=== PATIENT | male | born 1960 | race American Indian/Alaskan Native ===

== ENCOUNTER 2017-04-10 09:55 | Emergency (ER) | payer OTHER ==
[2017-04-10 09:55] VITALS: BMI 28.5
[2017-04-10 10:00] VITALS: RESP 18
--- NOTE | 2017-04-10 10:17 | ED PDOC ---
Arrival/HPI - General Chief Complaint: Back Pain Time Seen by Provider: 04/10/17 09:59 Historian: Patient - History of Present Illness Narrative History of Present Illness (Text): 04/10/17 10:12 This 56 yo male who denies pmh, presents to this ED c/o left lower back pain that radiates to his left buttock x 1 day. Patient states while getting off his truck, he landed wrong on the ground causing back pain. Patient denies sob , cp, abdominal pain, fever, urinary symptoms, GI/ incontinence, saddle anesthesias, urinary retention, dizziness, testicular pain, groin pain, hematuria, dysuria, skin rash, or abnormal gait. Time/Duration: Other (1 day) Quality: Aching Context: Home Past Medical History - Provider Review Nursing Documentation Reviewed: Yes - Psychiatric Hx Substance Use: No - Anesthesia Hx Anesthesia: No Family/Social History - Physician Review Nursing Documentation Reviewed: Yes Family/Social History: Other (noncontributory) Smoking Status: Never Smoked Hx Alcohol Use: Yes Hx Substance Use: No Allergies/Home Meds Allergies/Adverse Reactions: Allergies No Known Allergies Allergy (Verified 04/10/17 10:00) Review of Systems - Review of Systems Constitutional: Normal. absent: Fatigue, Weight Change, Fevers, Night Sweats Eyes: Normal ENT: Normal Respiratory: Normal. absent: SOB, Cough Cardiovascular: Normal. absent: Chest Pain, Palpitations Gastrointestinal: Normal. absent: Abdominal Pain, Nausea, Vomiting Genitourinary Male: Normal. absent: Dysuria, Frequency, Hematuria Musculoskeletal: Back Pain Skin: Normal. absent: Rash Neurological: Normal Endocrine: Normal Hemo/Lymphatic: Normal Psychiatric: Normal Physical Exam Vital Signs Temp Pulse Resp BP Pulse Ox 04/10/17 09:56 97.9 F 91 H 18 141/82 97 Temperature: Afebrile Blood Pressure: Normal Pulse: Regular Respiratory Rate: Normal Appearance: Positive for: Well-Appearing, Non-Toxic, Comfortable Pain Distress: None Mental Status: Positive for: Alert and Oriented X 3 - Systems Exam Head: Present: Atraumatic, Normocephalic Pupils: Present: PERRL Extroacular Muscles: Present: EOMI Conjunctiva: Present: Normal Mouth: Present: Moist Mucous Membranes Neck: Present: Normal Range of Motion Respiratory/Chest: Present: Clear to Auscultation, Good Air Exchange. No: Respiratory Distress, Accessory Muscle Use Cardiovascular: Present: Regular Rate and Rhythm, Normal S1, S2. No: Murmurs Abdomen: Present: Normal Bowel Sounds. No: Tenderness, Distention, Peritoneal Signs Back: Present: Normal Inspection. No: CVA Tenderness, Midline Tenderness, Paraspinal Tenderness, Pain with Leg Raise Upper Extremity: Present: Normal Inspection, Normal ROM, NORMAL PULSES, Neurovascularly Intact, Capillary Refill < 2s. No: Cyanosis, Edema Lower Extremity: Present: Normal Inspection, NORMAL PULSES, Normal ROM, Neurovascularly Intact, Capillary Refill < 2 s. No: Edema Neurological: Present: GCS=15, CN II-XII Intact, Speech Normal, Motor Func Grossly Intact, Normal Sensory Function, Normal Cerebellar Funct, Gait Normal Skin: Present: Warm, Dry, Normal Color. No: Rashes Psychiatric: Present: Alert, Oriented x 3, Normal Insight, Normal Concentration Medical Decision Making ED Course and Treatment: 04/10/17 10:54 Re-evaluation. Patient feels better. Discussed results and plan with patient who expresses understanding. All questions answered and there is agreement with the plan to discharge home with instructions. Patient stable for discharge. Return if symptoms persist or worsen. Re-evaluation Time: 10:54 Reassessment Condition: Re-examined, Improved - RAD Interpretation Narrative RAD Interpretations (Text): 04/10/17 10:53 Dictator : Mitch Walters MD Insurance Underwriter Sales : Line Crew Supervisor : Mitch Walters MD Approver2 : Report Date : 04/10/2017 10:49:57 My Comment : PROCEDURE: Radiographs of the Lumbar Spine. HISTORY: pain COMPARISON: No prior. FINDINGS: BONES: Normal alignment. No listhesis. No fracture. DISC SPACES: Unremarkable. OTHER FINDINGS: None. IMPRESSION: Unremarkable radiographs of the lumbar spine. Radiology Orders: 04/10/17 10:11 LS SPINE WITH OBL > 18 YRS OLD [RAD] Stat - Medication Orders Current Medication Orders: Discontinued Medications Diazepam (Valium) 5 mg PO ONCE ONE PRN Reason: Protocol Stop: 04/10/17 10:12 Last Admin: 04/10/17 10:27 Dose: 5 mg Ketorolac Tromethamine (Toradol) 60 mg IM STAT STA Stop: 04/10/17 10:12 Last Admin: 04/10/17 10:26 Dose: 60 mg MAR Pain Assessment Document 04/10/17 10:26 MS (Rec: 04/10/17 10:27 MS [id number]) Pain Reassessment Is this a pain reassessment? No Sleep Is patient sleeping during reassessment? No Presence of Pain Presence of Pain Yes Pain Scale Used Pain Scale Used Numeric Location Upper or Lower Lower Pain Location Body Site Back Description Description Intermittent Intensity of Pain at present 5 Pain Behavior Facial Grimacing Aggravating Factors Changing Position IM Administration Charges Document 04/10/17 10:26 MS (Rec: 04/10/17 10:27 MS [id number]) Injection Site MAR Injection Site Right Deltoid Charges for Administration # of IM Administrations 1 Disposition/Present on Arrival - Present on Arrival Any Indicators Present on Arrival: No History of DVT/PE: No History of Uncontrolled Diabetes: No Urinary Catheter: No History of Decub. Ulcer: No History Surgical Site Infection Following: None - Disposition Have Diagnosis and Disposition been Completed?: Yes Diagnosis: Back pain, Sciatica of left side Disposition: HOME/ ROUTINE Disposition Time: 10:54 Patient Plan: Discharge Patient Problems: Current Active Problems Problem Status Onset Back pain Acute Sciatica of left side Acute Condition: GOOD Discharge Instructions (ExitCare): Back Pain (ED) Additional Instructions: Call private doctor for follow up visit in 1-2 days . Take medication as instructed. Valium can make you feel drowsy, so take it at bedtime. Return to emergency if symptoms worsen. Don't drive or operate machinery if you are taking Valium for at least 8 hours Prescriptions: diaZEpam [Valium] 5 mg PO DAILY #6 tab Naproxen 500 mg PO BID PRN #14 tab PRN Reason: Pain, Severe (8-10) Referrals: Jesus Mayorga DO [Staff Provider] - Follow up with primary Forms: [employer] (Irish), WORK NOTE
--- NOTE | 2017-04-10 10:51 | RAD ---
PROCEDURE: Radiographs of the Lumbar Spine. HISTORY: pain COMPARISON: No prior. FINDINGS: BONES: Normal alignment. No listhesis. No fracture. DISC SPACES: Unremarkable. OTHER FINDINGS: None. IMPRESSION: Unremarkable radiographs of the lumbar spine.
[2017-04-10 11:17] VITALS: BP 138/79; PULSE 86; TEMP 98; O2SAT 98
== END 2017-04-10 11:48 | disposition home or self-care (01) ==
LOC: ED 09:55
DX: M54.32 Sciatica, left side (principal); M54.5 Low back pain
CPT/HCPCS: 72110; 96372; 99282; J1885